=== PATIENT | female | born 1940 | race Caucasian/White ===

== ENCOUNTER → 2018-09-02 | Outpatient (CLI) | payer MEDICARE, OTHER | LOC: RAD 07:23 | DX: M71.20 Synovial cyst of popliteal space [Baker], unspecified knee (principal); R29.898 Other symptoms and signs involving the musculoskeletal system ==

== ENCOUNTER 2020-09-19 11:09 | Emergency (ER) | payer MEDICARE ==
[2020-09-19 11:48] LABS: EOS # 0.1 (0.04-0.40); EOS % 1.2 % (1.0-5.0); LYMPH# 1.1 (1.50-4.00); MEAN PLATELET VOLUME 9.4 fl (7.4-10.4); MONO # 0.4 (0.20-0.80); PLATELET COUNT 386 K/mm3 (130-400); RED BLOOD COUNT 3.01 M/mm3 (4.10-5.30); RED CELL DISTRIBUTION WIDTH 17.2 % (11.5-14.5); WHITE BLOOD COUNT 6.7 K/mm3 (4.8-10.8)
[2020-09-19 11:49] LABS: HEMATOCRIT 20.8 % (37.0-47.0); HEMOGLOBIN 5.8 g/dL (12.5-16.0); MEAN CELL VOLUME 69 fl (78-100); MEAN CORPUSCULAR HEMOGLOBIN 19 pg (27-31); MEAN CORPUSCULAR HGB CONC 28 g/dL (33-37)
[2020-09-19 11:59] LABS: ALBUMIN 3.9 g/dL (3.4-4.8)
[2020-09-19 12:00] LABS: CALCIUM 8.5 mg/dL (8.3-10.5)
[2020-09-19 12:02] LABS: TOTAL PROTEIN 6.3 g/dL (6.2-8.1)
[2020-09-19 12:03] LABS: TOTAL BILIRUBIN 0.6 mg/dL (0.2-1.2)
[2020-09-19 12:56] VITALS: BP 138/60
[2020-09-19] MEDS ORDERED: AMLODIPINE BESYL5 MG PO (13:32)
[2020-09-19] MEDS ORDERED: LOSARTAN POTAS100 MG PO (13:32)
[2020-09-19] MEDS ORDERED: ZYLOPRIM 100MG100 MG PO (13:33)
[2020-09-20] MEDS ORDERED: FERROUS SU325 MG/TAB PO (09:32)
[2020-09-20] MEDS ORDERED: PROTONIX TR40 M1 PO (09:42)
== END 2020-09-19 13:05 | disposition other institution (70) ==
LOC: ED 11:09
PROVIDERS: Physician Assistant
DX: D50.9 Iron deficiency anemia, unspecified (principal); K21.9 Gastro-esophageal reflux disease without esophagitis; I10 Essential (primary) hypertension; M10.9 Gout, unspecified

== ENCOUNTER 2020-09-19 12:36 | Inpatient (IN) | payer MEDICARE ==
[2020-09-19] VITALS (22 sets, daily range): BP systolic 98–161; BP diastolic 45–75
[2020-09-19] MEDS ORDERED: AMLODIPINE BESYL5 MG PO (13:32)
[2020-09-19] MEDS ORDERED: LOSARTAN POTAS100 MG PO (13:32)
[2020-09-19] MEDS ORDERED: ZYLOPRIM 100MG100 MG PO (13:33)
[2020-09-20] VITALS: BP 144/67
[2020-09-20 02:29] VITALS: BP 127/63
[2020-09-20 05:32] LABS: EOS # 0.2 (0.04-0.40); EOS % 2.2 % (1.0-5.0); HEMATOCRIT 28.7 % (37.0-47.0); HEMOGLOBIN 8.5 g/dL (12.5-16.0); LYMPH# 1.6 (1.50-4.00); MEAN CELL VOLUME 76 fl (78-100); MEAN CORPUSCULAR HGB CONC 30 g/dL (33-37); MEAN PLATELET VOLUME 9.2 fl (7.4-10.4); MONO # 0.6 (0.20-0.80); NEU # 5.2 (1.40-6.50); PLATELET COUNT 342 K/mm3 (130-400); RED BLOOD COUNT 3.76 M/mm3 (4.10-5.30); WHITE BLOOD COUNT 7.6 K/mm3 (4.8-10.8)
[2020-09-20 05:37] LABS: MEAN CORPUSCULAR HEMOGLOBIN 23 pg (27-31); RED CELL DISTRIBUTION WIDTH 22.2 % (11.5-14.5)
[2020-09-20 06:06] VITALS: BP 136/67
[2020-09-20] MEDS ORDERED: FERROUS SU325 MG/TAB PO (09:32)
[2020-09-20] MEDS ORDERED: PROTONIX TR40 M1 PO (09:42)
[2020-09-20 10:29] VITALS: BP 141/70
== END 2020-09-20 10:50 | disposition home or self-care (01) | DRG 379 ==
LOC: MED/SURG 12:36
PROVIDERS: ADMIT Physician Assistant
DX: K92.2 Gastrointestinal hemorrhage, unspecified (principal); D50.9 Iron deficiency anemia, unspecified; I10 Essential (primary) hypertension; M10.9 Gout, unspecified; K21.9 Gastro-esophageal reflux disease without esophagitis; M54.2 Cervicalgia; Z79.1 Long term (current) use of non-steroidal anti-inflammatories (NSAID)
CPT/HCPCS: C9113; J7050; P9016

== ENCOUNTER → 2020-09-19 | Outpatient (CLI) | payer MEDICARE ==
[~2020-09-19] MED LIST: AMLODIPINE BESYL5 MG PO; FERROUS SU325 MG/TAB PO; LOSARTAN POTAS100 MG PO; PROTONIX TR40 M1 PO; ZYLOPRIM 100MG100 MG PO
[2020-09-19 10:10] LABS: EOS # 0.1 (0.04-0.40); EOS % 1.6 % (1.0-5.0); LYMPH# 1.5 (1.50-4.00); MEAN CELL VOLUME 70 fl (78-100); MEAN PLATELET VOLUME 8.7 fl (7.4-10.4); MONO # 0.6 (0.20-0.80); NEU # 4.5 (1.40-6.50); PLATELET COUNT 468 K/mm3 (130-400); RED BLOOD COUNT 3.36 M/mm3 (4.10-5.30); RED CELL DISTRIBUTION WIDTH 17.6 % (11.5-14.5); WHITE BLOOD COUNT 6.7 K/mm3 (4.8-10.8)
[2020-09-19 10:12] LABS: HEMATOCRIT 23.5 % (37.0-47.0); HEMOGLOBIN 6.3 g/dL (12.5-16.0); MEAN CORPUSCULAR HEMOGLOBIN 19 pg (27-31); MEAN CORPUSCULAR HGB CONC 27 g/dL (33-37)
== END ==
LOC: LAB 09:58
PROVIDERS: Family Medicine
DX: D64.9 Anemia, unspecified (principal)

== ENCOUNTER → 2020-09-27 | Outpatient (CLI) | payer MEDICARE ==
[2020-09-20 10:29] VITALS: BP 141/70
== END ==
LOC: RAD 13:08
DX: R60.0 Localized edema (principal); R59.0 Localized enlarged lymph nodes
CPT/HCPCS: Q9967

== ENCOUNTER → 2024-05-12 | Day surgery (SDC) | payer MEDICARE ==
[~2024-05-12] MED LIST changes: +Balanced Salt Ophth Irrig 15 ML BOTTLE *BULK OP SCH; +Cyclopentolate 2% Ophth Soln 1 BOTTLE *BULK OP SCH; +EPINEPHrine 1 MG/ML (1:1000) 1 ML AMP IR SCH; +Ketorolac 0.5% Ophth Soln 5 ML Bottle *BULK OP SCH; +Labetalol 100 MG/20 ML Multi-Dose VIAL ONE; +Midazolam 2 MG/2 ML VIAL IV ONE; +Phenylephrine 10% Ophth Soln 5 ML BOTTLE *BULK OP SCH; +Polymyxin B Sulfate/Trimethoprim Ophth Soln 10 ML BOTTLE *BULK OP SCH; +Povidone Iodine 5% Ophth Soln 30 ML BOTTLE *BULK OP SCH; +Proparacaine 0.5% Ophth Soln 15 ML BOTTLE *BULK OP SCH; +Tropicamide 1% Ophth Soln Bottle *BULK OP SCH; +Trypan Blue 0.06% Ophth Soln 0.5 ML SYRINGE IO ONE
== END ==
LOC: MSO 04:59
DX: H25.812 Combined forms of age-related cataract, left eye (principal); Z85.850 Personal history of malignant neoplasm of thyroid
CPT/HCPCS: 00142; J0171; J1920; J2250; V2632

== ENCOUNTER → 2024-06-09 | Day surgery (SDC) | payer MEDICARE ==
[~2024-06-09] MED LIST changes: +Acetaminophen 500 MG TAB PO SCH; -Trypan Blue 0.06% Ophth Soln 0.5 ML SYRINGE IO ONE
== END ==
LOC: MSO 08:54
DX: H25.811 Combined forms of age-related cataract, right eye (principal); Z85.850 Personal history of malignant neoplasm of thyroid
CPT/HCPCS: 00142; J0171; J1920; J2250; V2632